=== PATIENT | male | born 1975 | race Caucasian/White ===

== ENCOUNTER 2017-01-17 13:31 | Emergency (ER) | payer BC ==
[2017-01-17] MEDS ORDERED: KEPPRA 1,000 MG/NS 0.75% 100ML 1,000 MG/100 ML BAG IV ONE (13:42)
[2017-01-17] MEDS ORDERED: KEPPRA 1,000 MG in NACL 0.9% 100 ML IV SCH (14:00)
--- NOTE | 2017-01-17 14:36 | Emergency Department Report ---
ED Seizure HPI - General Chief Complaint: Seizure Stated Complaint: SEIZURES Time Seen by Provider: 01/17/17 13:53 Source: patient, EMS, RN notes reviewed Mode of arrival: Stretcher Limitations: No Limitations - History of Present Illness Initial Comments: 41-year-old male presents to the emergency department via EMS for evaluation of seizure. Patient states he had a single seizure this morning that was witnessed by people at his [facility]. Patient reports a history of seizures and states he usually takes Keppra. He states he did not take his dose this morning. His last seizure was approximately 6 weeks ago. At this time, the patient denies complaints. There are no other complaints. MD Complaint: seizure -: Sudden, This morning Description of Episode: loss of consciousness, tonic-clonic movement Witnessed:: Yes Trauma: No Seizure History: known seizure disorder, history of non-compliance Place: other ([facility]) Possible Precipitating Event: none Associated Symptoms: denies other symptoms Treatments Prior to Arrival: none - Related Data Allergies Allergy/AdvReac Type Severity Reaction Status Date / Time No Known Allergies Allergy Unverified 01/17/17 13:34 ED Review of Systems ROS: Stated complaint: SEIZURES Other details as noted in HPI Comment: All other systems reviewed and negative Neurological: as per HPI (seizure) ED Past Medical Hx - Past Medical History Previous Medical History?: Yes Hx Seizures: Yes - Surgical History Past Surgical History?: No - Family History Family history: no significant - Social History Smoking Status: Never Smoker Substance Use Type: None ED Physical Exam - General Limitations: No Limitations General appearance: alert, in no apparent distress - Head Head exam: Present: atraumatic, normocephalic - Eye Eye exam: Present: normal appearance, PERRL, EOMI - ENT ENT exam: Present: normal exam, normal orophraynx, mucous membranes moist - Neck Neck exam: Present: normal inspection, full ROM. Absent: tenderness - Respiratory Respiratory exam: Present: normal lung sounds bilaterally. Absent: respiratory distress - Cardiovascular Cardiovascular Exam: Present: regular rate, normal rhythm, normal heart sounds - GI/Abdominal GI/Abdominal exam: Present: soft, normal bowel sounds. Absent: distended, tenderness - Extremities Exam Extremities exam: Present: normal inspection, full ROM. Absent: tenderness - Back Exam Back exam: Present: normal inspection, full ROM. Absent: tenderness - Neurological Exam Neurological exam: Present: alert, oriented X3. Absent: motor sensory deficit - Skin Skin exam: Present: warm, dry, intact ED Course Vital Signs 01/17/17 01/17/17 13:56 13:57 Temperature 98.6 F Pulse Rate 80 Respiratory 15 15 Rate Blood Pressure 133/93 [Left] O2 Sat by Pulse 100 100 Oximetry ED Medical Decision Making - Lab Data Result diagrams: 01/17/17 14:27 01/17/17 14:27 - Medical Decision Making Lab results reviewed and discussed with the patient. Patient has remained asymptomatic in the emergency department. Patient states he has plenty of his Keppra at home. Patient will be discharged home at this time. - Differential Diagnosis seizure disorder, medication noncompliance, electrolyte abnormality Critical care attestation.: If time is entered above; I have spent that time in minutes in the direct care of this critically ill patient, excluding procedure time. ED Disposition Clinical Impression: Seizure Disposition: DISCHARGED TO HOME OR SELFCARE Is pt being admited?: No Condition: Stable Instructions: Recurrent Seizures Adult (ED) Referrals: ALLEGRA FELDMAN MD [Staff Physician] - 3-5 Days Time of Disposition: 15:32
[2017-01-17 14:45] LABS: Basophils % (Auto) 0.1 % (0.0-1.8); Eosinophils % (Auto) 1.7 % (0.0-4.3); Hemoglobin 10.6 gm/dl (11.8-15.2); Mean Corpuscular HGB Conc 33 % (32-34); Mean Corpuscular Hemoglobin 29 pg (28-32); Mean Corpuscular Volume 88 fl (84-94); Platelet Count 175 K/mm3 (140-440); Red Blood Count 3.62 M/mm3 (3.65-5.03); Red Cell Distribution Width 15.2 % (13.2-15.2); White Blood Count 3.4 K/mm3 (4.5-11.0)
[2017-01-17 15:04] LABS: BUN/Creatinine Ratio 8.66; Calcium 8.7 mg/dL (8.4-10.2); Chloride 100.3 mmol/L (98-107); Potassium 3.9 mmol/L (3.6-5.0)
[2017-01-17 16:46] VITALS: BP 125/86
== END 2017-01-17 16:42 | disposition home or self-care (01) ==
LOC: ED 13:31
DX: R56.9 Unspecified convulsions (principal)
CPT/HCPCS: 36415; 80048; 85025; 96374; 99284; J1953

== ENCOUNTER 2017-11-13 04:11 | Emergency (ER) | payer BC ==
--- NOTE | 2017-11-13 05:40 | Cat Scan Report ---
FINAL REPORT EXAM: CT HEAD/BRAIN W/O CONTRAST HISTORY: Headache. TECHNIQUE: Unenhanced axial CT images of the brain were obtained. No prior studies are available for comparison. FINDINGS: The cortical sulci and ventricles are within normal limits for patient's age. The pettit-white differentiation is maintained. There is no extra-axial fluid collection, mass, mass effect, midline shift, hydrocephalus, or acute intracranial hemorrhage. The visualized paranasal sinuses and mastoid air cells are clear. There is no skull fracture or other osseous abnormality. The visualized orbits and globes are grossly unremarkable. IMPRESSION: No acute intracranial abnormality.
--- NOTE | 2017-11-13 07:16 | Emergency Department Report ---
ED Headache HPI - General Chief Complaint: Headache Stated Complaint: HEADACHE Time Seen by Provider: 11/13/17 07:08 Source: patient - History of Present Illness Initial Comments: 42-year-old male presents with complaint of one week of left-sided headache. Denies any head trauma denies fevers chills nausea vomiting photophobia and a phobia neck rigidity. States that he might have had slight sided earache. States that this has been intermittent waxing and waning over the last several days. Has not taken any home remedies for headache. Denies any upper or lower extremity paresthesias blurry vision or any other symptoms other than left- sided headache. Patient is awake alert and oriented 3 fully lucid and ambulatory. Denies any alcohol or drug use. Timing/Duration: 1 week Allergies/Adverse Reactions: Allergies No Known Allergies Allergy (Unverified 01/17/17 13:34) Home Medications: Ambulatory Orders Ibuprofen [Motrin] 800 mg PO Q8HR PRN #25 tablet 11/13/17 Metoclopramide HCl [Reglan TAB] 5 mg PO TIDAC PRN #9 tablet 11/13/17 ED Review of Systems ROS: Stated complaint: HEADACHE Other details as noted in HPI Constitutional: denies: chills, fever Eyes: denies: eye pain, eye discharge, vision change ENT: denies: ear pain, throat pain Respiratory: denies: cough, shortness of breath, wheezing Cardiovascular: denies: chest pain, palpitations Endocrine: no symptoms reported Gastrointestinal: denies: abdominal pain, nausea, diarrhea Genitourinary: denies: urgency, dysuria Musculoskeletal: denies: back pain, joint swelling, arthralgia Skin: denies: rash, lesions Neurological: headache. denies: weakness, paresthesias Psychiatric: denies: anxiety, depression Hematological/Lymphatic: denies: easy bleeding, easy bruising ED Past Medical Hx - Past Medical History Previous Medical History?: Yes Hx Seizures: Yes - Surgical History Past Surgical History?: No - Social History Smoking Status: Never Smoker Substance Use Type: None - Medications Home Medications: Home Medications Medication Instructions Recorded Confirmed Last Taken Type Ibuprofen [Motrin] 800 mg PO Q8HR PRN #25 tablet 11/13/17 Unknown Rx Metoclopramide HCl [Reglan TAB] 5 mg PO TIDAC PRN #9 tablet 11/13/17 Unknown Rx ED Physical Exam - General Limitations: No Limitations General appearance: alert, in no apparent distress - Head Head exam: Present: atraumatic, normocephalic - Eye Eye exam: Present: normal appearance, PERRL, EOMI - ENT ENT exam: Present: mucous membranes moist - Expanded ENT Exam Expanded Mouth exam: Present: normal external inspection Teeth exam: Present: normal inspection Throat exam: Positive: normal inspection - Neck Neck exam: Present: normal inspection, full ROM - Respiratory Respiratory exam: Present: normal lung sounds bilaterally. Absent: respiratory distress - Cardiovascular Cardiovascular Exam: Present: regular rate, normal rhythm. Absent: systolic murmur, diastolic murmur, rubs, gallop - GI/Abdominal GI/Abdominal exam: Present: soft, normal bowel sounds - Rectal Rectal exam: Present: deferred - Extremities Exam Extremities exam: Present: normal inspection - Back Exam Back exam: Present: normal inspection - Neurological Exam Neurological exam: Present: alert, oriented X3, CN II-XII intact, normal gait - Expanded Neurological Exam Expanded Patient oriented to: Present: person, place, time Cranial nerves: EOM's Intact: Normal, Facial Sensation: Normal Cerebellar function: Finger to Nose: Normal, Romberg: Normal Sensory exam: Upper Extremity Light Touch: Normal, Lower Extremity Light Touch: Normal Motor strength exam: RUE: 5, LUE: 5, RLE: 5, LLE: 5 Best Eye Response (Buxton): (4) open spontaneously Best Motor Response ([place]): (6) obeys commands Best Verbal Response (Yajaira): (5) oriented [place] Total: 15 - Psychiatric Psychiatric exam: Present: normal affect, normal mood - Skin Skin exam: Present: warm, dry, intact, normal color. Absent: rash ED Course Vital Signs 11/13/17 11/13/17 11/13/17 04:21 08:10 08:38 Temperature 98.1 F 98.3 F Pulse Rate 80 66 Respiratory 20 14 14 Rate Blood Pressure 146/100 Blood Pressure 133/90 [Left] O2 Sat by Pulse 99 100 Oximetry ED Medical Decision Making - Medical Decision Making A/P: Migraine headache 1-Motrin when necessary, short course Reglan when necessary 2-follow-up with primary care doctor 3- Cranial nerves 2, 3, 4, 5, 6, 7, 8,10, 11, 12 intact on clinical exam, patient is fully lucid awake alert and oriented 3 conversant. Denies any upper or lower extremity paresthesias and has 5/5 strength in bilateral upper and lower extremities on clinical exam. 4- follow-up with primary medical doctor this week Critical care attestation.: If time is entered above; I have spent that time in minutes in the direct care of this critically ill patient, excluding procedure time. ED Disposition Clinical Impression: Tension headache Disposition: DC- TO HOME OR SELFCARE Is pt being admited?: No Does the pt Need Aspirin: No Condition: Stable Instructions: Tension Headache (ED), Acute Headache (ED) Prescriptions: Ibuprofen [Motrin] 800 mg PO Q8HR PRN #25 tablet PRN Reason: Headache Metoclopramide HCl [Reglan TAB] 5 mg PO TIDAC PRN #9 tablet PRN Reason: Headache Referrals: TIAN RENEE [Other] - 3-5 Days [facility] [Outside] - 3-5 Days Forms: Work/School Release Form(ED) Time of Disposition: 08:59
[2017-11-13] MEDS ORDERED: MOTRIN PO ONE (07:36)
[2017-11-13] MEDS ORDERED: BENADRYL IV ONE (07:36)
[2017-11-13] MEDS ORDERED: REGLAN IV ONE (07:36)
[2017-11-13] MEDS ORDERED: REGLAN ONE (07:37)
[2017-11-13] MEDS ORDERED: BENADRYL ONE (07:37)
[2017-11-13] MEDS ORDERED: MOTRIN ONE (07:37)
[2017-11-13 08:12] VITALS: BP 133/90
== END 2017-11-13 09:17 | disposition home or self-care (01) ==
LOC: ED 04:11
DX: G44.209 Tension-type headache, unspecified, not intractable (principal)
CPT/HCPCS: 70450; 82962; 96374; 96375; 99284; J1200; J2765

== ENCOUNTER 2018-02-19 23:45 | Inpatient (IN) | payer SELFPAY ==
[2018-02-19] MEDS ORDERED: NACL 0.9% 1000 ML 1,000 ML IV ONE (23:53)
[2018-02-19] MEDS: ATIVAN IV PRN (23:55)
[2018-02-20 00:37] LABS: Hematocrit 29.5 % (35.5-45.6); Hemoglobin 9.9 gm/dl (11.8-15.2); Mean Corpuscular HGB Conc 34 % (32-34); Mean Corpuscular Hemoglobin 30 pg (28-32); Mean Corpuscular Volume 89 fl (84-94); Platelet Count 158 K/mm3 (140-440); Red Blood Count 3.31 M/mm3 (3.65-5.03); Red Cell Distribution Width 13.6 % (13.2-15.2)
[2018-02-20 00:56] LABS: Albumin 3.5 g/dL (3.9-5); Calcium 8.3 mg/dL (8.4-10.2)
--- NOTE | 2018-02-20 01:08 | Cat Scan Report ---
FINAL REPORT PROCEDURE: CT HEAD/BRAIN WO CON TECHNIQUE: Computerized tomography of the head was performed without contrast material. HISTORY: Seizure COMPARISON: 11/13/2017 FINDINGS: Skull and scalp: Normal. Paranasal sinuses: Normal. Ventricles and subarachnoid spaces: Normal. Cerebrum: No evidence of hemorrhage, acute infarction or mass . Cerebellum and brainstem: No evidence of hemorrhage, acute infarction or mass. Vasculature: Normal. Comments: None. IMPRESSION: There is no evidence of an acute intracranial process.
[2018-02-20] MEDS: ATIVAN IV PRN ×6 (03:00→20:44)
[2018-02-20] MEDS ORDERED: NACL 0.9% 1000 ML 1,000 ML ONE (03:17)
[2018-02-20 03:37] LABS: Bilirubin,Urine NEG (Negative); Blood,Urine LG (Negative); Color,Urine Yellow (Yellow); Mucus,Urine FEW /HPF; Protein,Urine <15 mg/dL mg/dL (Negative)
[2018-02-20 03:38] LABS: RBC,Urine > 182.0 /HPF (0.0-6.0)
[2018-02-20 03:44] LABS: Amphetamine Screen,Urine PRESUMPTIVE NEGATIVE; Benzodiazepines Screen,Urine PRESUMPTIVE NEGATIVE; Cannabinoid Screen,Urine PRESUMPTIVE NEGATIVE; Cocaine Screen,Urine PRESUMPTIVE NEGATIVE; Methadone Screen,Urine PRESUMPTIVE NEGATIVE; Opiate Screen,Urine PRESUMPTIVE NEGATIVE
--- NOTE | 2018-02-20 04:51 | Emergency Department Report ---
ED Seizure HPI - General Chief Complaint: Seizure Stated Complaint: SEIZURES Time Seen by Provider: 02/19/18 23:53 Source: family, EMS Mode of arrival: Stretcher Limitations: No Limitations - History of Present Illness Initial Comments: Patient brought emergency department by friends with report of having had seizure shortly prior to arrival. 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 There was unclear whether patient had any postictal episodes, the patient was not incontinent, and had not bitten his tongue. Friends report the patient has a past history of seizures, which are treated with lorazepam, and gabapentin or Lyrica. It is unclear where he had his diagnosis of seizures, and whether he was under the care of a neurologist. Last seizure was several months earlier. Patient has not suffered any trauma, had not been ill, and had not had any other unusual activity, and had not been particularly stressed as result of his theatrical activities. General health is otherwise good. There's been no recreational drug use history. - Related Data Previous Rx's Medication Instructions Recorded Last Taken Type Ibuprofen [Motrin] 800 mg PO Q8HR PRN #25 tablet 11/13/17 Unknown Rx Metoclopramide HCl [Reglan TAB] 5 mg PO TIDAC PRN #9 tablet 11/13/17 Unknown Rx Allergies Allergy/AdvReac Type Severity Reaction Status Date / Time No Known Allergies Allergy Unverified 01/17/17 13:34 ED Review of Systems ROS: Stated complaint: SEIZURES Other details as noted in HPI Constitutional: denies: chills, fever ENT: denies: ear pain, throat pain Respiratory: denies: cough, shortness of breath, wheezing Cardiovascular: denies: chest pain, palpitations Endocrine: no symptoms reported Gastrointestinal: denies: abdominal pain, nausea, diarrhea Genitourinary: denies: urgency, dysuria Musculoskeletal: denies: back pain, joint swelling, arthralgia Skin: denies: rash, lesions Neurological: as per HPI (no preceding symptoms). denies: headache, weakness, paresthesias Psychiatric: denies: anxiety, depression Hematological/Lymphatic: denies: easy bleeding, easy bruising ED Past Medical Hx - Past Medical History Previous Medical History?: Yes Hx Seizures: Yes (Epilepsy, treated with lorazepam,) - Social History Smoking Status: Never Smoker Substance Use Type: None - Medications Home Medications: Home Medications Medication Instructions Recorded Confirmed Last Taken Type Ibuprofen [Motrin] 800 mg PO Q8HR PRN #25 tablet 11/13/17 Unknown Rx Metoclopramide HCl [Reglan TAB] 5 mg PO TIDAC PRN #9 tablet 11/13/17 Unknown Rx ED Physical Exam - General Limitations: No Limitations General appearance: obtunded (patient is awake, and physically responsive to request in between seizure activity, but minimally vocal, no clear-cut postictal activity.) - Head Head exam: Present: atraumatic, normocephalic - Eye Eye exam: Present: PERRL - ENT ENT exam: Present: normal exam, mucous membranes moist - Neck Neck exam: Present: normal inspection, full ROM. Absent: tenderness - Respiratory Respiratory exam: Present: normal lung sounds bilaterally. Absent: wheezes, rales, rhonchi - Cardiovascular Cardiovascular Exam: Present: regular rate, normal heart sounds - GI/Abdominal GI/Abdominal exam: Present: soft, normal bowel sounds. Absent: tenderness, guarding, rebound - Rectal Rectal exam: Present: deferred - Extremities Exam Extremities exam: Present: normal inspection, full ROM, other (no signs of trauma, abrasion or laceration). Absent: tenderness - Neurological Exam Neurological exam: Present: altered (questionable unresponsive, limited evidence of typical postictal activity, does exhibit spontaneous movement of all extremities.). Absent: motor sensory deficit - Psychiatric Psychiatric exam: Present: other (unable to assess due to overall obtunded appearance) - Skin Skin exam: Present: warm, dry ED Course Vital Signs 02/19/18 02/19/18 02/19/18 23:22 23:30 23:45 Temperature 36.7 C Pulse Rate 89 120 H Respiratory 23 34 H Rate Blood Pressure 163/91 163/91 O2 Sat by Pulse 100 100 100 Oximetry 02/19/18 02/20/18 02/20/18 23:46 00:00 00:06 Temperature Pulse Rate 86 84 86 Respiratory 17 18 15 Rate Blood Pressure 141/96 163/91 O2 Sat by Pulse 100 100 100 Oximetry 02/20/18 02/20/18 02/20/18 00:08 00:30 01:14 Temperature Pulse Rate 85 74 Respiratory 18 13 13 Rate Blood Pressure 134/96 134/96 O2 Sat by Pulse 100 99 Oximetry 02/20/18 02/20/18 02/20/18 01:30 02:00 02:30 Temperature Pulse Rate 75 74 87 Respiratory 13 13 14 Rate Blood Pressure 129/90 131/89 131/89 O2 Sat by Pulse 100 98 100 Oximetry 02/20/18 03:00 Temperature Pulse Rate 66 Respiratory 13 Rate Blood Pressure 142/99 O2 Sat by Pulse 100 Oximetry - Reevaluation(s) Reevaluation #1: 02/20/18 04:52 Patient treated initially with lorazepam, had several additional episodes of the course of his emergency department observation and evaluation, H also treated with additional doses of lorazepam, and patient ultimately is sedated, sleeping fairly comfortably, but there was one additional seizure episode at 0430 hrs., typical of the previous episodes, without clearcut postictal activity. - Consultations Consultation #1: 02/20/18 04:53 Dr. Doran consulted, will admit patient ED Medical Decision Making - Lab Data Result diagrams: 02/20/18 00:16 02/20/18 00:16 - Medical Decision Making Patient has a typical seizure activity, and on my observation, does not appear to be clear-cut grand mal seizure, but could be atypical seizures, either absence or Complex Partial, but I Would Also Hold High Suspicion for Pseudoseizure Activity As Well. - Differential Diagnosis seizure, pseudoseizure, exhaustion, stress reaction Critical Care Time: No Critical care attestation.: If time is entered above; I have spent that time in minutes in the direct care of this critically ill patient, excluding procedure time. ED Disposition Clinical Impression: Seizure Disposition: OP ADMIT IP TO THIS HOSP Is pt being admited?: Yes Does the pt Need Aspirin: No Condition: Stable Referrals: PRIMARY CARE, [Primary Care Provider] - 3-5 Days Time of Disposition: 03:30
[2018-02-20] MEDS ORDERED: TYLENOL PO PRN ×2 (04:55→05:43)
[2018-02-20] MEDS ORDERED: SODIUM CHLORIDE FLUSH SYRINGE 10 ML IV PRN ×2 (04:55→05:43)
[2018-02-20] MEDS ORDERED: ZOFRAN IV PRN ×2 (04:55→05:43)
[2018-02-20 04:56] LABS: Band Neutrophils # (Manual) 0.1 K/mm3; Basophils % (Manual) 0 % (0.0-1.8); Eosinophils % (Manual) 0 % (0.0-4.3); Total Cells Counted 100
[2018-02-20 04:57] LABS: Anisocytosis 1+; Hypochromasia 1+
[2018-02-20] MEDS ORDERED: KEPPRA 1,000 MG/NS 0.75% 100ML 1,000 MG/100 ML BAG IV ONE (04:57)
--- NOTE | 2018-02-20 05:36 | History and Physical Report ---
History of Present Illness Date of examination: 02/20/18 Date of admission: 02/20/2018 Chief complaint: Chief complaint: Multiple seizures since 6 PM yesterday History of present illness: History of present illness: [id number] -[place] male with history of seizures on Lyrica and Ativan presents with multiple seizures since 6 PM off 02/19/2018. Patient was seen around 4 AM in the morning. As per the friends at bedside and his boyfriend patient and multiple seizures since 6 PM. A total of 14 times. As per the nurse in the emergency room couple of them were tonic-clonic and the patient had to be held down. Total of 5 in the emergency room which were witnessed. The other 3 seizures patient had twitching in the arm followed by twitching of the eyes. They were very brief. Patient did not have any tongue biting any of these seizures. No fever no chills. No headache. No nausea no vomiting. No neck stiffness. No exacerbating or relieving factors. Past History Past Medical History: seizures Past Surgical History: No surgical history Social history: full code (homosexuality), other Family history: hypertension Medications and Allergies Allergies Allergy/AdvReac Type Severity Reaction Status Date / Time No Known Allergies Allergy Unverified 01/17/17 13:34 Home Medications Medication Instructions Recorded Confirmed Last Taken Type Ibuprofen [Motrin] 800 mg PO Q8HR PRN #25 tablet 11/13/17 Unknown Rx Metoclopramide HCl [Reglan TAB] 5 mg PO TIDAC PRN #9 tablet 11/13/17 Unknown Rx Active Meds: Active Medications Acetaminophen (Tylenol) 650 mg PO Q4H PRN PRN Reason: Pain MILD(1-3)/Fever >100.5/RANDHAWA Lorazepam (Ativan) 2 mg IV Q5M PRN PRN Reason: Seizures Last Admin: 02/20/18 04:19 Dose: 2 mg Ondansetron HCl (Zofran) 4 mg IV Q8H PRN PRN Reason: Nausea And Vomiting Sodium Chloride (Sodium Chloride Flush Syringe 10 Ml) 10 ml IV BID SAVITA Sodium Chloride (Sodium Chloride Flush Syringe 10 Ml) 10 ml IV PRN PRN PRN Reason: LINE FLUSH Review of Systems All systems: negative Cardiovascular: no chest pain, no orthopnea, no palpitations, no rapid/ irregular heart beat, no edema, no syncope Respiratory: no cough, no cough with sputum, no excessive sputum, no shortness of breath, no dyspnea on exertion, no congestion Gastrointestinal: no abdominal pain, no nausea, no vomiting, no diarrhea, no constipation Genitourinary Male: no dysuria, no hematuria, no urinary frequency, no urinary hesitancy, no nocturia Musculoskeletal: no neck stiffness, no neck pain, no shooting arm pain, no arm numbness/tingling, no low back pain Integumentary: no rash, no pruritis, no redness, no sores, no wounds, no jaundice Neurological: seizures Psychiatric: anxiety, no memory loss, no change in sleep habits, no sleep disturbances, no insomnia Endocrine: no cold intolerance, no heat intolerance Hematologic/Lymphatic: no easy bruising, no easy bleeding Allergic/Immunologic: no urticaria, no allergic rhinitis, no wheezing Exam - Constitutional Vitals: Temp Pulse Resp BP Pulse Ox 98.1 F 69 12 151/97 99 02/19/18 23:45 02/20/18 04:30 02/20/18 04:30 02/20/18 04:30 02/20/18 04:30 General appearance: Present: no acute distress, well-nourished - EENT Eyes: Present: PERRL ENT: hearing intact, clear oral mucosa - Neck Neck: Present: supple, normal ROM - Respiratory Respiratory effort: normal Respiratory: bilateral: CTA - Cardiovascular Heart rate: 78 Rhythm: regular Heart Sounds: Present: S1 & S2. Absent: rub, click - Extremities Extremities: no ischemia, pulses intact, pulses symmetrical, No edema Peripheral Pulses: within normal limits - Abdominal General gastrointestinal: Present: soft, non-tender, non-distended, normal bowel sounds Male genitourinary: Present: normal - Rectal Rectal Exam: deferred - Integumentary Integumentary: Present: clear, warm, dry - Musculoskeletal Musculoskeletal: gait normal, strength equal bilaterally - Psychiatric Psychiatric: appropriate mood/affect, intact judgment & insight - Neurologic Neurologic: CNII-XII intact, moves all extremities, gait normal, other ( nonfocal exam and patient is not postictal) Results - Labs CBC & Chem 7: 02/20/18 00:16 02/20/18 00:16 Labs: Laboratory Last Values WBC 2.3 K/mm3 (4.5-11.0) L 02/20/18 00:16 RBC 3.31 M/mm3 (3.65-5.03) L 02/20/18 00:16 Hgb 9.9 gm/dl (11.8-15.2) L 02/20/18 00:16 Hct 29.5 % (35.5-45.6) L 02/20/18 00:16 MCV 89 fl (84-94) 02/20/18 00:16 MCH 30 pg (28-32) 02/20/18 00:16 MCHC 34 % (32-34) 02/20/18 00:16 RDW 13.6 % (13.2-15.2) 02/20/18 00:16 Plt Count 158 K/mm3 (140-440) 02/20/18 00:16 Add Manual Diff Complete 02/20/18 00:16 Total Counted 100 02/20/18 00:16 Seg Neuts % (Manual) 66.0 % (40.0-70.0) 02/20/18 00:16 Band Neutrophils % 5.0 % 02/20/18 00:16 Lymphocytes % (Manual) 20.0 % (13.4-35.0) 02/20/18 00:16 Reactive Lymphs % (Man) 0 % 02/20/18 00:16 Monocytes % (Manual) 9.0 % (0.0-7.3) H 02/20/18 00:16 Eosinophils % (Manual) 0 % (0.0-4.3) 02/20/18 00:16 Basophils % (Manual) 0 % (0.0-1.8) 02/20/18 00:16 Metamyelocytes % 0 % 02/20/18 00:16 Myelocytes % 0 % 02/20/18 00:16 Promyelocytes % 0 % 02/20/18 00:16 Blast Cells % 0 % 02/20/18 00:16 Nucleated RBC % Not Reportable 02/20/18 00:16 Seg Neutrophils # Man 1.5 K/mm3 (1.8-7.7) L 02/20/18 00:16 Band Neutrophils # 0.1 K/mm3 02/20/18 00:16 Lymphocytes # (Manual) 0.5 K/mm3 (1.2-5.4) L 02/20/18 00:16 Abs React Lymphs (Man) 0.0 K/mm3 02/20/18 00:16 Monocytes # (Manual) 0.2 K/mm3 (0.0-0.8) 02/20/18 00:16 Eosinophils # (Manual) 0.0 K/mm3 (0.0-0.4) 02/20/18 00:16 Basophils # (Manual) 0.0 K/mm3 (0.0-0.1) 02/20/18 00:16 Metamyelocytes # 0.0 K/mm3 02/20/18 00:16 Myelocytes # 0.0 K/mm3 02/20/18 00:16 Promyelocytes # 0.0 K/mm3 02/20/18 00:16 Blast Cells # 0.0 K/mm3 02/20/18 00:16 WBC Morphology Not Reportable 02/20/18 00:16 Hypersegmented Neuts Not Reportable 02/20/18 00:16 Hyposegmented Neuts Not Reportable 02/20/18 00:16 Hypogranular Neuts Not Reportable 02/20/18 00:16 Smudge Cells Not Reportable 02/20/18 00:16 Toxic Granulation Not Reportable 02/20/18 00:16 Toxic Vacuolation Not Reportable 02/20/18 00:16 Dohle Bodies Not Reportable 02/20/18 00:16 Pelger-Huet Anomaly Not Reportable 02/20/18 00:16 Mal Rods Not Reportable 02/20/18 00:16 Platelet Estimate Appears normal 02/20/18 00:16 Clumped Platelets Not Reportable 02/20/18 00:16 Plt Clumps, EDTA Not Reportable 02/20/18 00:16 Large Platelets Not Reportable 02/20/18 00:16 Giant Platelets Not Reportable 02/20/18 00:16 Platelet Satelliting Not Reportable 02/20/18 00:16 Plt Morphology Comment Not Reportable 02/20/18 00:16 RBC Morphology Not Reportable 02/20/18 00:16 Dimorphic RBCs Not Reportable 02/20/18 00:16 Polychromasia Not Reportable 02/20/18 00:16 Hypochromasia 1+ 02/20/18 00:16 Poikilocytosis Not Reportable 02/20/18 00:16 Anisocytosis 1+ 02/20/18 00:16 Microcytosis Not Reportable 02/20/18 00:16 Macrocytosis Not Reportable 02/20/18 00:16 Spherocytes Not Reportable 02/20/18 00:16 Pappenheimer Bodies Not Reportable 02/20/18 00:16 Sickle Cells Not Reportable 02/20/18 00:16 Target Cells Not Reportable 02/20/18 00:16 Tear Drop Cells Not Reportable 02/20/18 00:16 Ovalocytes Not Reportable 02/20/18 00:16 Helmet Cells Not Reportable 02/20/18 00:16 [place] Bodies Not Reportable 02/20/18 00:16 [place] Rings Not Reportable 02/20/18 00:16 [place] Cells Not Reportable 02/20/18 00:16 Bite Cells Not Reportable 02/20/18 00:16 Crenated Cell Not Reportable 02/20/18 00:16 Elliptocytes Not Reportable 02/20/18 00:16 Acanthocytes (Spur) Not Reportable 02/20/18 00:16 Rouleaux Not Reportable 02/20/18 00:16 Hemoglobin C Crystals Not Reportable 02/20/18 00:16 Schistocytes Not Reportable 02/20/18 00:16 Malaria parasites Not Reportable 02/20/18 00:16 Romeo Bodies Not Reportable 02/20/18 00:16 Hem Pathologist Commnt No 02/20/18 00:16 Sodium 141 mmol/L (137-145) 02/20/18 00:16 Potassium 3.7 mmol/L (3.6-5.0) 02/20/18 00:16 Chloride 104.4 mmol/L (98-107) 02/20/18 00:16 Carbon Dioxide 26 mmol/L (22-30) 02/20/18 00:16 Anion Gap 14 mmol/L 02/20/18 00:16 BUN 14 mg/dL (9-20) 02/20/18 00:16 Creatinine 1.4 mg/dL (0.8-1.5) 02/20/18 00:16 Estimated GFR 56 ml/min 02/20/18 00:16 BUN/Creatinine Ratio 10 % 02/20/18 00:16 Glucose 101 mg/dL (75-100) H 02/20/18 00:16 Calcium 8.3 mg/dL (8.4-10.2) L 02/20/18 00:16 Total Bilirubin 0.30 mg/dL (0.1-1.2) 02/20/18 00:16 AST 25 units/L (5-40) 02/20/18 00:16 ALT 12 units/L (7-56) 02/20/18 00:16 Alkaline Phosphatase 48 units/L (35-129) 02/20/18 00:16 Total Protein 7.1 g/dL (6.3-8.2) 02/20/18 00:16 Albumin 3.5 g/dL (3.9-5) L 02/20/18 00:16 Albumin/Globulin Ratio 1.0 % 02/20/18 00:16 Urine Color Yellow (Yellow) 02/20/18 03:06 Urine Turbidity Hazy (Clear) 02/20/18 03:06 Urine pH 6.0 (5.0-7.0) 02/20/18 03:06 Ur Specific [place] 1.013 (1.003-1.030) 02/20/18 03:06 Urine Protein <15 mg/dl mg/dL (Negative) 02/20/18 03:06 Urine Glucose (UA) Neg mg/dL (Negative) 02/20/18 03:06 Urine Ketones Neg mg/dL (Negative) 02/20/18 03:06 Urine Blood Lg (Negative) 02/20/18 03:06 Urine Nitrite Neg (Negative) 02/20/18 03:06 Urine Bilirubin Neg (Negative) 02/20/18 03:06 Urine Urobilinogen 2.0 mg/dL (<2.0) 02/20/18 03:06 Ur Leukocyte Esterase Neg (Negative) 02/20/18 03:06 Urine WBC (Auto) 4.0 /HPF (0.0-6.0) 02/20/18 03:06 Urine RBC (Auto) > 182.0 /HPF (0.0-6.0) 02/20/18 03:06 U Epithel Cells (Auto) < 1.0 /HPF (0-13.0) 02/20/18 03:06 Urine Mucus Few /HPF 02/20/18 03:06 Salicylates < 0.3 mg/dL (2.8-20.0) L 02/20/18 00:16 Urine Opiates Screen Presumptive negative 02/20/18 03:06 Urine Methadone Screen Presumptive negative 02/20/18 03:06 Acetaminophen < 5.0 ug/mL (10.0-30.0) L 02/20/18 00:16 Ur Barbiturates Screen Presumptive negative 02/20/18 03:06 Phenytoin 0.8 ug/mL (10.0-20.0) L 02/20/18 00:16 Valproic Acid < 2.8 ug/mL (50-100) L 02/20/18 00:16 Carbamazepine 2.0 ug/mL (4-12) L 02/20/18 00:16 Ur Phencyclidine Scrn Presumptive negative 02/20/18 03:06 Ur Amphetamines Screen Presumptive negative 02/20/18 03:06 U Benzodiazepines Scrn Presumptive negative 02/20/18 03:06 Urine Cocaine Screen Presumptive negative 02/20/18 03:06 U Marijuana (THC) Screen Presumptive negative 02/20/18 03:06 Drugs of Abuse Note Disclamer 02/20/18 03:06 Plasma/Serum Alcohol < 0.01 % (0-0.07) 02/20/18 00:16 - Imaging and Cardiology CT Scan - head: report reviewed (no acute findings) Assessment and Plan Advance Directives: Yes (full code) VTE prophylaxis?: Chemical Plan of care discussed with patient/family: Yes - Patient Problems (1) Seizure disorder, complex partial Current Visit: Yes Status: Acute Qualifiers: Epilepsy type: partial symptomatic Status epilepticus: without status epilepticus Plan to address problem: Patient on Lyrica and Ativan We will replace it with IV Keppra and discontinue Lyrica. Patient to be discharged on oral Keppra. 750 mg every 12. Neurology consulted (2) Conversion disorder with attacks or seizures, acute episode Current Visit: Yes Status: Acute Plan to address problem: Possible conversion disorder mental health consulted. (3) Neutropenia Current Visit: Yes Status: Acute Plan to address problem: HIV test ordered because of his sexual preference (4) Hypocalcemia Current Visit: Yes Status: Chronic Plan to address problem: Mild Caltrate initiated (5) DVT prophylaxis Current Visit: Yes Status: Acute Plan to address problem: Lovenox 40 mg subcutaneous daily
[2018-02-20] MEDS ORDERED: MOTRIN PO PRN (05:43)
[2018-02-20] MEDS ORDERED: MORPHINE IV PRN (05:43)
[2018-02-20] MEDS: D5NS 1,000 ML IV SCH ×2 (06:35→23:26)
[2018-02-20] MEDS ORDERED: KEPPRA 750 MG in D5W 100 ML IV SCH (10:00)
[2018-02-20] MEDS: SODIUM CHLORIDE FLUSH SYRINGE 10 ML IV SCH ×2 (11:09)
[2018-02-20] MEDS: CALTRATE PLUS PO SCH ×2 (11:10→23:26)
--- NOTE | 2018-02-20 13:47 | Progress Note ---
Assessment and Plan - Patient Problems (1) Anemia Current Visit: Yes Status: Acute Plan to address problem: At this point patient has a reactive tests for HIV. Most likely etiology. We' ll obtain viral load ID consult. (2) Conversion disorder with attacks or seizures, acute episode Current Visit: Yes Status: Acute Plan to address problem: At present from the description appears to be an actual seizure. They did have witnessed seizure by staff and ER. Patient continues to have another seizure will increase Keppra to 1000 twice a day await any further recommendations via neurology. He is oxygenating well. Did come around appears and had another seizure currently on Ativan. (3) Neutropenia Current Visit: Yes Status: Acute Plan to address problem: Most likely secondary to patient's HIV status. (4) Seizure disorder, complex partial Current Visit: Yes Status: Acute Qualifiers: Epilepsy type: partial symptomatic Status epilepticus: without status epilepticus Plan to address problem: see seizure as previously described. Above (5) HIV (human immunodeficiency virus infection) Current Visit: Yes Status: Acute Plan to address problem: She had a reaction positive test. Unable to detail patient about results secondary to his postictal status. History Interval history: Patient is sleeping in bed comfortably this particular time friends at bedside stated patient had additional seizure approximately 1 hour prior to my entrance. Patient also received Ativan. Most likely postictal and Ativan. I did not discuss findings of reactive HIV with anyone. Patient was sleeping and could not take part in the conversation. Hospitalist Physical - Constitutional Vitals: Temp Pulse Resp BP Pulse Ox 97.4 F L 64 18 143/93 100 02/20/18 07:38 02/20/18 11:15 02/20/18 11:15 02/20/18 11:15 02/20/18 11:15 General appearance: Present: no acute distress, well-nourished - EENT Eyes: Present: PERRL, EOM intact - Neck Neck: Present: supple, normal ROM - Respiratory Respiratory: bilateral: CTA - Cardiovascular Rhythm: regular - Extremities Extremities: no ischemia, pulses intact, pulses symmetrical, No edema, normal temperature, normal color Peripheral Pulses: within normal limits - Abdominal General gastrointestinal: soft, non-tender, non-distended - Integumentary Integumentary: Present: clear, warm, dry - Psychiatric Psychiatric: other (encephalopathic post ictal.) - Neurologic Neurologic: CNII-XII intact Results - Labs CBC & Chem 7: 02/20/18 00:16 02/20/18 00:16 Labs: Laboratory Last Values WBC 2.3 K/mm3 (4.5-11.0) L 02/20/18 00:16 RBC 3.31 M/mm3 (3.65-5.03) L 02/20/18 00:16 Hgb 9.9 gm/dl (11.8-15.2) L 02/20/18 00:16 Hct 29.5 % (35.5-45.6) L 02/20/18 00:16 MCV 89 fl (84-94) 02/20/18 00:16 MCH 30 pg (28-32) 02/20/18 00:16 MCHC 34 % (32-34) 02/20/18 00:16 RDW 13.6 % (13.2-15.2) 02/20/18 00:16 Plt Count 158 K/mm3 (140-440) 02/20/18 00:16 Add Manual Diff Complete 02/20/18 00:16 Total Counted 100 02/20/18 00:16 Seg Neuts % (Manual) 66.0 % (40.0-70.0) 02/20/18 00:16 Band Neutrophils % 5.0 % 02/20/18 00:16 Lymphocytes % (Manual) 20.0 % (13.4-35.0) 02/20/18 00:16 Reactive Lymphs % (Man) 0 % 02/20/18 00:16 Monocytes % (Manual) 9.0 % (0.0-7.3) H 02/20/18 00:16 Eosinophils % (Manual) 0 % (0.0-4.3) 02/20/18 00:16 Basophils % (Manual) 0 % (0.0-1.8) 02/20/18 00:16 Metamyelocytes % 0 % 02/20/18 00:16 Myelocytes % 0 % 02/20/18 00:16 Promyelocytes % 0 % 02/20/18 00:16 Blast Cells % 0 % 02/20/18 00:16 Nucleated RBC % Not Reportable 02/20/18 00:16 Seg Neutrophils # Man 1.5 K/mm3 (1.8-7.7) L 02/20/18 00:16 Band Neutrophils # 0.1 K/mm3 02/20/18 00:16 Lymphocytes # (Manual) 0.5 K/mm3 (1.2-5.4) L 02/20/18 00:16 Abs React Lymphs (Man) 0.0 K/mm3 02/20/18 00:16 Monocytes # (Manual) 0.2 K/mm3 (0.0-0.8) 02/20/18 00:16 Eosinophils # (Manual) 0.0 K/mm3 (0.0-0.4) 02/20/18 00:16 Basophils # (Manual) 0.0 K/mm3 (0.0-0.1) 02/20/18 00:16 Metamyelocytes # 0.0 K/mm3 02/20/18 00:16 Myelocytes # 0.0 K/mm3 02/20/18 00:16 Promyelocytes # 0.0 K/mm3 02/20/18 00:16 Blast Cells # 0.0 K/mm3 02/20/18 00:16 WBC Morphology Not Reportable 02/20/18 00:16 Hypersegmented Neuts Not Reportable 02/20/18 00:16 Hyposegmented Neuts Not Reportable 02/20/18 00:16 Hypogranular Neuts Not Reportable 02/20/18 00:16 Smudge Cells Not Reportable 02/20/18 00:16 Toxic Granulation Not Reportable 02/20/18 00:16 Toxic Vacuolation Not Reportable 02/20/18 00:16 Dohle Bodies Not Reportable 02/20/18 00:16 Pelger-Huet Anomaly Not Reportable 02/20/18 00:16 Mal Rods Not Reportable 02/20/18 00:16 Platelet Estimate Appears normal 02/20/18 00:16 Clumped Platelets Not Reportable 02/20/18 00:16 Plt Clumps, EDTA Not Reportable 02/20/18 00:16 Large Platelets Not Reportable 02/20/18 00:16 Giant Platelets Not Reportable 02/20/18 00:16 Platelet Satelliting Not Reportable 02/20/18 00:16 Plt Morphology Comment Not Reportable 02/20/18 00:16 RBC Morphology Not Reportable 02/20/18 00:16 Dimorphic RBCs Not Reportable 02/20/18 00:16 Polychromasia Not Reportable 02/20/18 00:16 Hypochromasia 1+ 02/20/18 00:16 Poikilocytosis Not Reportable 02/20/18 00:16 Anisocytosis 1+ 02/20/18 00:16 Microcytosis Not Reportable 02/20/18 00:16 Macrocytosis Not Reportable 02/20/18 00:16 Spherocytes Not Reportable 02/20/18 00:16 Pappenheimer Bodies Not Reportable 02/20/18 00:16 Sickle Cells Not Reportable 02/20/18 00:16 Target Cells Not Reportable 02/20/18 00:16 Tear Drop Cells Not Reportable 02/20/18 00:16 Ovalocytes Not Reportable 02/20/18 00:16 Helmet Cells Not Reportable 02/20/18 00:16 [place] Bodies Not Reportable 02/20/18 00:16 [place] Rings Not Reportable 02/20/18 00:16 [place] Cells Not Reportable 02/20/18 00:16 Bite Cells Not Reportable 02/20/18 00:16 Crenated Cell Not Reportable 02/20/18 00:16 Elliptocytes Not Reportable 02/20/18 00:16 Acanthocytes (Spur) Not Reportable 02/20/18 00:16 Rouleaux Not Reportable 02/20/18 00:16 Hemoglobin C Crystals Not Reportable 02/20/18 00:16 Schistocytes Not Reportable 02/20/18 00:16 Malaria parasites Not Reportable 02/20/18 00:16 Romeo Bodies Not Reportable 02/20/18 00:16 Hem Pathologist Commnt No 02/20/18 00:16 Sodium 141 mmol/L (137-145) 02/20/18 00:16 Potassium 3.7 mmol/L (3.6-5.0) 02/20/18 00:16 Chloride 104.4 mmol/L (98-107) 02/20/18 00:16 Carbon Dioxide 26 mmol/L (22-30) 02/20/18 00:16 Anion Gap 14 mmol/L 02/20/18 00:16 BUN 14 mg/dL (9-20) 02/20/18 00:16 Creatinine 1.4 mg/dL (0.8-1.5) 02/20/18 00:16 Estimated GFR 56 ml/min 02/20/18 00:16 BUN/Creatinine Ratio 10 % 02/20/18 00:16 Glucose 101 mg/dL (75-100) H 02/20/18 00:16 Calcium 8.3 mg/dL (8.4-10.2) L 02/20/18 00:16 Total Bilirubin 0.30 mg/dL (0.1-1.2) 02/20/18 00:16 AST 25 units/L (5-40) 02/20/18 00:16 ALT 12 units/L (7-56) 02/20/18 00:16 Alkaline Phosphatase 48 units/L (35-129) 02/20/18 00:16 Total Protein 7.1 g/dL (6.3-8.2) 02/20/18 00:16 Albumin 3.5 g/dL (3.9-5) L 02/20/18 00:16 Albumin/Globulin Ratio 1.0 % 02/20/18 00:16 Urine Color Yellow (Yellow) 02/20/18 03:06 Urine Turbidity Hazy (Clear) 02/20/18 03:06 Urine pH 6.0 (5.0-7.0) 02/20/18 03:06 Ur Specific [place] 1.013 (1.003-1.030) 02/20/18 03:06 Urine Protein <15 mg/dl mg/dL (Negative) 02/20/18 03:06 Urine Glucose (UA) Neg mg/dL (Negative) 02/20/18 03:06 Urine Ketones Neg mg/dL (Negative) 02/20/18 03:06 Urine Blood Lg (Negative) 02/20/18 03:06 Urine Nitrite Neg (Negative) 02/20/18 03:06 Urine Bilirubin Neg (Negative) 02/20/18 03:06 Urine Urobilinogen 2.0 mg/dL (<2.0) 02/20/18 03:06 Ur Leukocyte Esterase Neg (Negative) 02/20/18 03:06 Urine WBC (Auto) 4.0 /HPF (0.0-6.0) 02/20/18 03:06 Urine RBC (Auto) > 182.0 /HPF (0.0-6.0) 02/20/18 03:06 U Epithel Cells (Auto) < 1.0 /HPF (0-13.0) 02/20/18 03:06 Urine Mucus Few /HPF 02/20/18 03:06 Salicylates < 0.3 mg/dL (2.8-20.0) L 02/20/18 00:16 Urine Opiates Screen Presumptive negative 02/20/18 03:06 Urine Methadone Screen Presumptive negative 02/20/18 03:06 Acetaminophen < 5.0 ug/mL (10.0-30.0) L 02/20/18 00:16 Ur Barbiturates Screen Presumptive negative 02/20/18 03:06 Phenytoin 0.8 ug/mL (10.0-20.0) L 02/20/18 00:16 Valproic Acid < 2.8 ug/mL (50-100) L 02/20/18 00:16 Carbamazepine 2.0 ug/mL (4-12) L 02/20/18 00:16 Ur Phencyclidine Scrn Presumptive negative 02/20/18 03:06 Ur Amphetamines Screen Presumptive negative 02/20/18 03:06 U Benzodiazepines Scrn Presumptive negative 02/20/18 03:06 Urine Cocaine Screen Presumptive negative 02/20/18 03:06 U Marijuana (THC) Screen Presumptive negative 02/20/18 03:06 Drugs of Abuse Note Disclamer 02/20/18 03:06 Plasma/Serum Alcohol < 0.01 % (0-0.07) 02/20/18 00:16 HIV 1&2 Antibody Rapid Reactive (Non React) 02/20/18 05:57 HIV P24 Antigen Non react (Non React) 02/20/18 05:57
[2018-02-20] MEDS ORDERED: KEPPRA 1,000 MG/NS 0.75% 100ML 1,000 MG/100 ML BAG IV SCH (14:00)
[2018-02-20] MEDS: PERCOCET 5/325 PO PRN (17:09)
--- NOTE | 2018-02-20 19:35 | Progress Note ---
Subjective - Reason for Consult Consult date: 02/20/18 Reason for consult: r/o conversion disorder - Chief Complaint Chief complaint: In light of his medical conditions, it is recommended to speak with him regarding his HIV status before psychiatric evaluation. We will follow up tomorrow. Mental Status Exam - Vital signs Last Vital Signs Temp 97.4 F L 02/20/18 07:38 Pulse 111 H 02/20/18 15:30 Resp 17 02/20/18 15:30 BP 97/59 02/20/18 16:16 Pulse Ox 99 02/20/18 15:30
[2018-02-20] MEDS: KEPPRA 1,000 MG in D5W 100 ML IV SCH (23:26)
[2018-02-21] MEDS: SODIUM CHLORIDE FLUSH SYRINGE 10 ML IV SCH ×6 (00:18→22:19)
[2018-02-21] MEDS: PERCOCET 5/325 PO PRN (01:52)
[2018-02-21] MEDS: ATIVAN IV PRN ×2 (02:11→13:19)
[2018-02-21 06:31] LABS: Basophils % (Auto) 0.7 % (0.0-1.8); Eosinophils % (Auto) 1.4 % (0.0-4.3); Hematocrit 34.7 % (35.5-45.6); Hemoglobin 11.6 gm/dl (11.8-15.2); Lymphocytes # (Auto) 0.7 K/mm3 (1.2-5.4); Lymphocytes % (Auto) 28.6 % (13.4-35.0); Mean Corpuscular HGB Conc 34 % (32-34); Mean Corpuscular Hemoglobin 30 pg (28-32); Mean Corpuscular Volume 91 fl (84-94); Monocytes # (Auto) 0.3 K/mm3 (0.0-0.8); Platelet Count 176 K/mm3 (140-440); Red Blood Count 3.83 M/mm3 (3.65-5.03); Red Cell Distribution Width 13.6 % (13.2-15.2)
[2018-02-21 06:54] LABS: BUN/Creatinine Ratio 8; Blood Urea Nitrogen 11 mg/dL (9-20); Calcium 8.8 mg/dL (8.4-10.2); Hemolysis Index 5
[2018-02-21] MEDS: KEPPRA 1,000 MG in D5W 100 ML IV SCH ×2 (09:37→22:18)
[2018-02-21] MEDS: CALTRATE PLUS PO SCH ×2 (09:37→22:18)
--- NOTE | 2018-02-21 11:55 | Event Note ---
Date: 02/21/18 Per notes and speaking with the staff, the patient have not been informed of his HIV status. Psychiatry will complete a initial psy assessment after the patient have been informed. Will follow up with patient in 24 hours.
[2018-02-21] MEDS: D5NS 1,000 ML IV SCH ×2 (13:00→20:31)
--- NOTE | 2018-02-21 13:08 | Progress Note ---
Assessment and Plan - Patient Problems (1) Anemia Current Visit: Yes Status: Acute Plan to address problem: Secondary to HIV. Patient is well aware of his status. Is not depressed at this particular time patient would like to find local infectious disease doctor so he can start treatment if necessary. (2) Conversion disorder with attacks or seizures, acute episode Current Visit: Yes Status: Acute Plan to address problem: At present from the description appears to be an actual seizure. They did have witnessed seizure by staff and ER. Patient continues to have another seizure will increase Keppra to 1000 twice a day await any further recommendations via neurology. He is oxygenating well. Did come around appears and had another seizure currently on Ativan. Stable since increasing Keppra to 750 mg twice a day. She'll be able to change to by mouth today. Await neurology eval. EEG pending (3) Neutropenia Current Visit: Yes Status: Acute Plan to address problem: Most likely secondary to patient's HIV status. (4) Seizure disorder, complex partial Current Visit: Yes Status: Acute Qualifiers: Epilepsy type: partial symptomatic Status epilepticus: without status epilepticus Plan to address problem: see seizure as previously described. Above (5) HIV (human immunodeficiency virus infection) Current Visit: Yes Status: Acute Plan to address problem: She had a reaction positive test. Unable to detail patient about results secondary to his postictal status. History Interval history: Had long discussion with patient about HIV status. Patient is aware of his HIV status has not been taking medications. Patient has been HIV for several years now positive. Currently not depressed about the situation at present. Patient did have one seizure at 2 AM last night. This is much better on Keppra. Hospitalist Physical - Constitutional Vitals: Temp Pulse Resp BP Pulse Ox 98.0 F 71 20 132/89 98 02/21/18 11:45 02/21/18 11:45 02/21/18 11:45 02/21/18 11:45 02/21/18 11:45 General appearance: Present: no acute distress, well-nourished, other ( lethargic but arousable) - EENT Eyes: Present: PERRL, EOM intact ENT: hearing intact, clear oral mucosa, dentition normal - Neck Neck: Present: supple, normal ROM - Respiratory Respiratory: bilateral: CTA - Cardiovascular Rhythm: regular - Extremities Extremities: no ischemia, pulses intact, pulses symmetrical Peripheral Pulses: within normal limits - Abdominal General gastrointestinal: soft, non-tender, non-distended - Integumentary Integumentary: Present: clear, warm, dry - Psychiatric Psychiatric: appropriate mood/affect, cooperative - Neurologic Neurologic: CNII-XII intact, moves all extremities Results - Labs CBC & Chem 7: 02/21/18 05:49 02/21/18 05:49 Labs: Laboratory Last Values WBC 2.5 K/mm3 (4.5-11.0) L 02/21/18 05:49 RBC 3.83 M/mm3 (3.65-5.03) 02/21/18 05:49 Hgb 11.6 gm/dl (11.8-15.2) L 02/21/18 05:49 Hct 34.7 % (35.5-45.6) L 02/21/18 05:49 MCV 91 fl (84-94) 02/21/18 05:49 MCH 30 pg (28-32) 02/21/18 05:49 MCHC 34 % (32-34) 02/21/18 05:49 RDW 13.6 % (13.2-15.2) 02/21/18 05:49 Plt Count 176 K/mm3 (140-440) 02/21/18 05:49 Lymph % (Auto) 28.6 % (13.4-35.0) 02/21/18 05:49 [place] % (Auto) 13.0 % (0.0-7.3) H 02/21/18 05:49 Eos % (Auto) 1.4 % (0.0-4.3) 02/21/18 05:49 Baso % (Auto) 0.7 % (0.0-1.8) 02/21/18 05:49 Lymph # 0.7 K/mm3 (1.2-5.4) L 02/21/18 05:49 [place] # 0.3 K/mm3 (0.0-0.8) 02/21/18 05:49 Eos # 0.0 K/mm3 (0.0-0.4) 02/21/18 05:49 Baso # 0.0 K/mm3 (0.0-0.1) 02/21/18 05:49 Add Manual Diff Complete 02/20/18 00:16 Total Counted 100 02/20/18 00:16 Seg Neutrophils % 56.3 % (40.0-70.0) 02/21/18 05:49 Seg Neuts % (Manual) 66.0 % (40.0-70.0) 02/20/18 00:16 Band Neutrophils % 5.0 % 02/20/18 00:16 Lymphocytes % (Manual) 20.0 % (13.4-35.0) 02/20/18 00:16 Reactive Lymphs % (Man) 0 % 02/20/18 00:16 Monocytes % (Manual) 9.0 % (0.0-7.3) H 02/20/18 00:16 Eosinophils % (Manual) 0 % (0.0-4.3) 02/20/18 00:16 Basophils % (Manual) 0 % (0.0-1.8) 02/20/18 00:16 Metamyelocytes % 0 % 02/20/18 00:16 Myelocytes % 0 % 02/20/18 00:16 Promyelocytes % 0 % 02/20/18 00:16 Blast Cells % 0 % 02/20/18 00:16 Nucleated RBC % Not Reportable 02/20/18 00:16 Seg Neutrophils # 1.4 K/mm3 (1.8-7.7) L 02/21/18 05:49 Seg Neutrophils # Man 1.5 K/mm3 (1.8-7.7) L 02/20/18 00:16 Band Neutrophils # 0.1 K/mm3 02/20/18 00:16 Lymphocytes # (Manual) 0.5 K/mm3 (1.2-5.4) L 02/20/18 00:16 Abs React Lymphs (Man) 0.0 K/mm3 02/20/18 00:16 Monocytes # (Manual) 0.2 K/mm3 (0.0-0.8) 02/20/18 00:16 Eosinophils # (Manual) 0.0 K/mm3 (0.0-0.4) 02/20/18 00:16 Basophils # (Manual) 0.0 K/mm3 (0.0-0.1) 02/20/18 00:16 Metamyelocytes # 0.0 K/mm3 02/20/18 00:16 Myelocytes # 0.0 K/mm3 02/20/18 00:16 Promyelocytes # 0.0 K/mm3 02/20/18 00:16 Blast Cells # 0.0 K/mm3 02/20/18 00:16 WBC Morphology Not Reportable 02/20/18 00:16 Hypersegmented Neuts Not Reportable 02/20/18 00:16 Hyposegmented Neuts Not Reportable 02/20/18 00:16 Hypogranular Neuts Not Reportable 02/20/18 00:16 Smudge Cells Not Reportable 02/20/18 00:16 Toxic Granulation Not Reportable 02/20/18 00:16 Toxic Vacuolation Not Reportable 02/20/18 00:16 Dohle Bodies Not Reportable 02/20/18 00:16 Pelger-Huet Anomaly Not Reportable 02/20/18 00:16 Mal Rods Not Reportable 02/20/18 00:16 Platelet Estimate Appears normal 02/20/18 00:16 Clumped Platelets Not Reportable 02/20/18 00:16 Plt Clumps, EDTA Not Reportable 02/20/18 00:16 Large Platelets Not Reportable 02/20/18 00:16 Giant Platelets Not Reportable 02/20/18 00:16 Platelet Satelliting Not Reportable 02/20/18 00:16 Plt Morphology Comment Not Reportable 02/20/18 00:16 RBC Morphology Not Reportable 02/20/18 00:16 Dimorphic RBCs Not Reportable 02/20/18 00:16 Polychromasia Not Reportable 02/20/18 00:16 Hypochromasia 1+ 02/20/18 00:16 Poikilocytosis Not Reportable 02/20/18 00:16 Anisocytosis 1+ 02/20/18 00:16 Microcytosis Not Reportable 02/20/18 00:16 Macrocytosis Not Reportable 02/20/18 00:16 Spherocytes Not Reportable 02/20/18 00:16 Pappenheimer Bodies Not Reportable 02/20/18 00:16 Sickle Cells Not Reportable 02/20/18 00:16 Target Cells Not Reportable 02/20/18 00:16 Tear Drop Cells Not Reportable 02/20/18 00:16 Ovalocytes Not Reportable 02/20/18 00:16 Helmet Cells Not Reportable 02/20/18 00:16 Costello-[place] Bodies Not Reportable 02/20/18 00:16 [place] Rings Not Reportable 02/20/18 00:16 [place] Cells Not Reportable 02/20/18 00:16 Bite Cells Not Reportable 02/20/18 00:16 Crenated Cell Not Reportable 02/20/18 00:16 Elliptocytes Not Reportable 02/20/18 00:16 Acanthocytes (Spur) Not Reportable 02/20/18 00:16 Rouleaux Not Reportable 02/20/18 00:16 Hemoglobin C Crystals Not Reportable 02/20/18 00:16 Schistocytes Not Reportable 02/20/18 00:16 Malaria parasites Not Reportable 02/20/18 00:16 [place]o Bodies Not Reportable 02/20/18 00:16 Hem Pathologist Commnt No 02/20/18 00:16 Sodium 140 mmol/L (137-145) 02/21/18 05:49 Potassium 3.9 mmol/L (3.6-5.0) 02/21/18 05:49 Chloride 103.4 mmol/L (98-107) 02/21/18 05:49 Carbon Dioxide 28 mmol/L (22-30) 02/21/18 05:49 Anion Gap 13 mmol/L 02/21/18 05:49 BUN 11 mg/dL (9-20) 02/21/18 05:49 Creatinine 1.3 mg/dL (0.8-1.5) 02/21/18 05:49 Estimated GFR > 60 ml/min 02/21/18 05:49 BUN/Creatinine Ratio 8 % 02/21/18 05:49 Glucose 86 mg/dL (75-100) 02/21/18 05:49 Calcium 8.8 mg/dL (8.4-10.2) 02/21/18 05:49 Total Bilirubin 0.30 mg/dL (0.1-1.2) 02/20/18 00:16 AST 25 units/L (5-40) 02/20/18 00:16 ALT 12 units/L (7-56) 02/20/18 00:16 Alkaline Phosphatase 48 units/L (35-129) 02/20/18 00:16 Total Protein 7.1 g/dL (6.3-8.2) 02/20/18 00:16 Albumin 3.5 g/dL (3.9-5) L 02/20/18 00:16 Albumin/Globulin Ratio 1.0 % 02/20/18 00:16 Urine Color Yellow (Yellow) 02/20/18 03:06 Urine Turbidity Hazy (Clear) 02/20/18 03:06 Urine pH 6.0 (5.0-7.0) 02/20/18 03:06 Ur Specific [place] 1.013 (1.003-1.030) 02/20/18 03:06 Urine Protein <15 mg/dl mg/dL (Negative) 02/20/18 03:06 Urine Glucose (UA) Neg mg/dL (Negative) 02/20/18 03:06 Urine Ketones Neg mg/dL (Negative) 02/20/18 03:06 Urine Blood Lg (Negative) 02/20/18 03:06 Urine Nitrite Neg (Negative) 02/20/18 03:06 Urine Bilirubin Neg (Negative) 02/20/18 03:06 Urine Urobilinogen 2.0 mg/dL (<2.0) 02/20/18 03:06 Ur Leukocyte Esterase Neg (Negative) 02/20/18 03:06 Urine WBC (Auto) 4.0 /HPF (0.0-6.0) 02/20/18 03:06 Urine RBC (Auto) > 182.0 /HPF (0.0-6.0) 02/20/18 03:06 U Epithel Cells (Auto) < 1.0 /HPF (0-13.0) 02/20/18 03:06 Urine Mucus Few /HPF 02/20/18 03:06 Salicylates < 0.3 mg/dL (2.8-20.0) L 02/20/18 00:16 Urine Opiates Screen Presumptive negative 02/20/18 03:06 Urine Methadone Screen Presumptive negative 02/20/18 03:06 Acetaminophen < 5.0 ug/mL (10.0-30.0) L 02/20/18 00:16 Ur Barbiturates Screen Presumptive negative 02/20/18 03:06 Phenytoin 0.8 ug/mL (10.0-20.0) L 02/20/18 00:16 Valproic Acid < 2.8 ug/mL (50-100) L 02/20/18 00:16 Carbamazepine 2.0 ug/mL (4-12) L 02/20/18 00:16 Ur Phencyclidine Scrn Presumptive negative 02/20/18 03:06 Ur Amphetamines Screen Presumptive negative 02/20/18 03:06 U Benzodiazepines Scrn Presumptive negative 02/20/18 03:06 Urine Cocaine Screen Presumptive negative 02/20/18 03:06 U Marijuana (THC) Screen Presumptive negative 02/20/18 03:06 Drugs of Abuse Note Disclamer 02/20/18 03:06 Plasma/Serum Alcohol < 0.01 % (0-0.07) 02/20/18 00:16 HIV 1&2 Antibody Rapid Reactive (Non React) 02/20/18 05:57 HIV P24 Antigen Non react (Non React) 02/20/18 05:57
--- NOTE | 2018-02-22 09:48 | Progress Note ---
Assessment and Plan Assessment and plan: Seizure disorder. Neurology to see. Continue Keppra 1000mg bid HIV infection. Patient says he has been HIV positive since he was 16yrs old DVT prophylaxis.Heparin subcut Full code status History Interval history: Seizures Hospitalist Physical - Physical exam Narrative exam: Gen : Not in acute distress, lying in bed HEENT:Normocephalic, atraumatic Neck: supple, No JVD Lungs:Clear to auscultation bilaterally,no crackles, no wheeze Heart :S1 and S2 reg, no murmurs, rubs or gallop Abd:soft, non tender, non distended, normal bowel sounds Ext: No edema, no clubbing, no cyanosis Neuro: Awake,alert,oriented x 3, no focal signs - Constitutional Vitals: Temp Pulse Resp BP Pulse Ox 97.5 F L 81 20 158/108 99 02/22/18 07:42 02/22/18 07:42 02/22/18 07:42 02/22/18 07:42 02/22/18 07:42 General appearance: Present: no acute distress, well-nourished, other ( lethargic but arousable) Results - Labs CBC & Chem 7: 02/21/18 05:49 02/21/18 05:49 Labs: Laboratory Last Values WBC 2.5 K/mm3 (4.5-11.0) L 02/21/18 05:49 RBC 3.83 M/mm3 (3.65-5.03) 02/21/18 05:49 Hgb 11.6 gm/dl (11.8-15.2) L 02/21/18 05:49 Hct 34.7 % (35.5-45.6) L 02/21/18 05:49 MCV 91 fl (84-94) 02/21/18 05:49 MCH 30 pg (28-32) 02/21/18 05:49 MCHC 34 % (32-34) 02/21/18 05:49 RDW 13.6 % (13.2-15.2) 02/21/18 05:49 Plt Count 176 K/mm3 (140-440) 02/21/18 05:49 Lymph % (Auto) 28.6 % (13.4-35.0) 02/21/18 05:49 [place] % (Auto) 13.0 % (0.0-7.3) H 02/21/18 05:49 Eos % (Auto) 1.4 % (0.0-4.3) 02/21/18 05:49 Baso % (Auto) 0.7 % (0.0-1.8) 02/21/18 05:49 Lymph # 0.7 K/mm3 (1.2-5.4) L 02/21/18 05:49 [place] # 0.3 K/mm3 (0.0-0.8) 02/21/18 05:49 Eos # 0.0 K/mm3 (0.0-0.4) 02/21/18 05:49 Baso # 0.0 K/mm3 (0.0-0.1) 02/21/18 05:49 Add Manual Diff Complete 02/20/18 00:16 Total Counted 100 02/20/18 00:16 Seg Neutrophils % 56.3 % (40.0-70.0) 02/21/18 05:49 Seg Neuts % (Manual) 66.0 % (40.0-70.0) 02/20/18 00:16 Band Neutrophils % 5.0 % 02/20/18 00:16 Lymphocytes % (Manual) 20.0 % (13.4-35.0) 02/20/18 00:16 Reactive Lymphs % (Man) 0 % 02/20/18 00:16 Monocytes % (Manual) 9.0 % (0.0-7.3) H 02/20/18 00:16 Eosinophils % (Manual) 0 % (0.0-4.3) 02/20/18 00:16 Basophils % (Manual) 0 % (0.0-1.8) 02/20/18 00:16 Metamyelocytes % 0 % 02/20/18 00:16 Myelocytes % 0 % 02/20/18 00:16 Promyelocytes % 0 % 02/20/18 00:16 Blast Cells % 0 % 02/20/18 00:16 Nucleated RBC % Not Reportable 02/20/18 00:16 Seg Neutrophils # 1.4 K/mm3 (1.8-7.7) L 02/21/18 05:49 Seg Neutrophils # Man 1.5 K/mm3 (1.8-7.7) L 02/20/18 00:16 Band Neutrophils # 0.1 K/mm3 02/20/18 00:16 Lymphocytes # (Manual) 0.5 K/mm3 (1.2-5.4) L 02/20/18 00:16 Abs React Lymphs (Man) 0.0 K/mm3 02/20/18 00:16 Monocytes # (Manual) 0.2 K/mm3 (0.0-0.8) 02/20/18 00:16 Eosinophils # (Manual) 0.0 K/mm3 (0.0-0.4) 02/20/18 00:16 Basophils # (Manual) 0.0 K/mm3 (0.0-0.1) 02/20/18 00:16 Metamyelocytes # 0.0 K/mm3 02/20/18 00:16 Myelocytes # 0.0 K/mm3 02/20/18 00:16 Promyelocytes # 0.0 K/mm3 02/20/18 00:16 Blast Cells # 0.0 K/mm3 02/20/18 00:16 WBC Morphology Not Reportable 02/20/18 00:16 Hypersegmented Neuts Not Reportable 02/20/18 00:16 Hyposegmented Neuts Not Reportable 02/20/18 00:16 Hypogranular Neuts Not Reportable 02/20/18 00:16 Smudge Cells Not Reportable 02/20/18 00:16 Toxic Granulation Not Reportable 02/20/18 00:16 Toxic Vacuolation Not Reportable 02/20/18 00:16 Dohle Bodies Not Reportable 02/20/18 00:16 Pelger-Huet Anomaly Not Reportable 02/20/18 00:16 Mal Rods Not Reportable 02/20/18 00:16 Platelet Estimate Appears normal 02/20/18 00:16 Clumped Platelets Not Reportable 02/20/18 00:16 Plt Clumps, EDTA Not Reportable 02/20/18 00:16 Large Platelets Not Reportable 02/20/18 00:16 Giant Platelets Not Reportable 02/20/18 00:16 Platelet Satelliting Not Reportable 02/20/18 00:16 Plt Morphology Comment Not Reportable 02/20/18 00:16 RBC Morphology Not Reportable 02/20/18 00:16 Dimorphic RBCs Not Reportable 02/20/18 00:16 Polychromasia Not Reportable 02/20/18 00:16 Hypochromasia 1+ 02/20/18 00:16 Poikilocytosis Not Reportable 02/20/18 00:16 Anisocytosis 1+ 02/20/18 00:16 Microcytosis Not Reportable 02/20/18 00:16 Macrocytosis Not Reportable 02/20/18 00:16 Spherocytes Not Reportable 02/20/18 00:16 Pappenheimer Bodies Not Reportable 02/20/18 00:16 Sickle Cells Not Reportable 02/20/18 00:16 Target Cells Not Reportable 02/20/18 00:16 Tear Drop Cells Not Reportable 02/20/18 00:16 Ovalocytes Not Reportable 02/20/18 00:16 Helmet Cells Not Reportable 02/20/18 00:16 Costello-[place] Bodies Not Reportable 02/20/18 00:16 [place] Rings Not Reportable 02/20/18 00:16 [place] Cells Not Reportable 02/20/18 00:16 Bite Cells Not Reportable 02/20/18 00:16 Crenated Cell Not Reportable 02/20/18 00:16 Elliptocytes Not Reportable 02/20/18 00:16 Acanthocytes (Spur) Not Reportable 02/20/18 00:16 Rouleaux Not Reportable 02/20/18 00:16 Hemoglobin C Crystals Not Reportable 02/20/18 00:16 Schistocytes Not Reportable 02/20/18 00:16 Malaria parasites Not Reportable 02/20/18 00:16 Romeo Bodies Not Reportable 02/20/18 00:16 Hem Pathologist Commnt No 02/20/18 00:16 Sodium 140 mmol/L (137-145) 02/21/18 05:49 Potassium 3.9 mmol/L (3.6-5.0) 02/21/18 05:49 Chloride 103.4 mmol/L (98-107) 02/21/18 05:49 Carbon Dioxide 28 mmol/L (22-30) 02/21/18 05:49 Anion Gap 13 mmol/L 02/21/18 05:49 BUN 11 mg/dL (9-20) 02/21/18 05:49 Creatinine 1.3 mg/dL (0.8-1.5) 02/21/18 05:49 Estimated GFR > 60 ml/min 02/21/18 05:49 BUN/Creatinine Ratio 8 % 02/21/18 05:49 Glucose 86 mg/dL (75-100) 02/21/18 05:49 POC Glucose 122 (70-105) H 02/21/18 21:55 Calcium 8.8 mg/dL (8.4-10.2) 02/21/18 05:49 Total Bilirubin 0.30 mg/dL (0.1-1.2) 02/20/18 00:16 AST 25 units/L (5-40) 02/20/18 00:16 ALT 12 units/L (7-56) 02/20/18 00:16 Alkaline Phosphatase 48 units/L (35-129) 02/20/18 00:16 Total Protein 7.1 g/dL (6.3-8.2) 02/20/18 00:16 Albumin 3.5 g/dL (3.9-5) L 02/20/18 00:16 Albumin/Globulin Ratio 1.0 % 02/20/18 00:16 Urine Color Yellow (Yellow) 02/20/18 03:06 Urine Turbidity Hazy (Clear) 02/20/18 03:06 Urine pH 6.0 (5.0-7.0) 02/20/18 03:06 Ur Specific [place] 1.013 (1.003-1.030) 02/20/18 03:06 Urine Protein <15 mg/dl mg/dL (Negative) 02/20/18 03:06 Urine Glucose (UA) Neg mg/dL (Negative) 02/20/18 03:06 Urine Ketones Neg mg/dL (Negative) 02/20/18 03:06 Urine Blood Lg (Negative) 02/20/18 03:06 Urine Nitrite Neg (Negative) 02/20/18 03:06 Urine Bilirubin Neg (Negative) 02/20/18 03:06 Urine Urobilinogen 2.0 mg/dL (<2.0) 02/20/18 03:06 Ur Leukocyte Esterase Neg (Negative) 02/20/18 03:06 Urine WBC (Auto) 4.0 /HPF (0.0-6.0) 02/20/18 03:06 Urine RBC (Auto) > 182.0 /HPF (0.0-6.0) 02/20/18 03:06 U Epithel Cells (Auto) < 1.0 /HPF (0-13.0) 02/20/18 03:06 Urine Mucus Few /HPF 02/20/18 03:06 Salicylates < 0.3 mg/dL (2.8-20.0) L 02/20/18 00:16 Urine Opiates Screen Presumptive negative 02/20/18 03:06 Urine Methadone Screen Presumptive negative 02/20/18 03:06 Acetaminophen < 5.0 ug/mL (10.0-30.0) L 02/20/18 00:16 Ur Barbiturates Screen Presumptive negative 02/20/18 03:06 Phenytoin 0.8 ug/mL (10.0-20.0) L 02/20/18 00:16 Valproic Acid < 2.8 ug/mL (50-100) L 02/20/18 00:16 Carbamazepine 2.0 ug/mL (4-12) L 02/20/18 00:16 Ur Phencyclidine Scrn Presumptive negative 02/20/18 03:06 Ur Amphetamines Screen Presumptive negative 02/20/18 03:06 U Benzodiazepines Scrn Presumptive negative 02/20/18 03:06 Urine Cocaine Screen Presumptive negative 02/20/18 03:06 U Marijuana (THC) Screen Presumptive negative 02/20/18 03:06 Drugs of Abuse Note Disclamer 02/20/18 03:06 Plasma/Serum Alcohol < 0.01 % (0-0.07) 02/20/18 00:16 HIV 1&2 Antibody Rapid Reactive (Non React) 02/20/18 05:57 HIV P24 Antigen Non react (Non React) 02/20/18 05:57
[2018-02-22] MEDS: CALTRATE PLUS PO SCH ×2 (09:59→22:31)
[2018-02-22] MEDS: KEPPRA 1,000 MG in D5W 100 ML IV SCH (09:59)
[2018-02-22] MEDS: D5NS 1,000 ML IV SCH ×2 (09:59→22:34)
--- NOTE | 2018-02-22 11:59 | Consultation ---
History of Present Illness Consult date: 02/22/18 Requesting physician: BELLO AGUIRRE Reason for Consult: Seizure. Chief complaint: Seizure. History of present illness: 42 years old left handed male with a long past medical history of seizure, admitted for seizure break through. He also has HIV. He related that he had first seizure at 9 years old. He smelled bad odd as aura, then jerking and shaking, eye near fully closed, all extremities shaking, lasted minutes. No clearly postictal, no bitten tongue, no incontinency. He has a neurologist in [place], last time he saw his neurologist was 3 months ago. He denied EMU study before. He only used Lyrica and Ativan for his seizure. He can't remember what other seizure medicine he used before. Past History Past Medical History: seizures Past Surgical History: No surgical history Social history: no significant social history, full code (homosexuality) Family history: hypertension Medications and Allergies Allergies Allergy/AdvReac Type Severity Reaction Status Date / Time No Known Allergies Allergy Unverified 01/17/17 13:34 Home Medications Medication Instructions Recorded Confirmed Last Taken Type No Known Home Medications [No 02/21/18 02/21/18 Unknown History Reported Home Medications] Active Meds: Active Medications Acetaminophen (Tylenol) 650 mg PO Q4H PRN PRN Reason: Pain MILD(1-3)/Fever >100.5/RANDHAWA Dextrose/Sodium Chloride (D5ns) 1,000 mls @ 75 mls/hr IV DIRECT SAVITA Last Admin: 02/22/18 09:59 Dose: 75 mls/hr Levetiracetam 1,000 mg/ (Dextrose) 110 mls @ 440 mls/hr IV Q12H SAVITA Stop: 02/22/18 12:59 Last Admin: 02/22/18 09:59 Dose: 440 mls/hr Ibuprofen (Motrin) 600 mg PO Q6H PRN PRN Reason: Pain, Mild (1-3) Levetiracetam (Keppra) 1,000 mg PO BID SAVITA Lorazepam (Ativan) 2 mg IV Q5M PRN PRN Reason: Seizures Last Admin: 02/21/18 13:19 Dose: 2 mg Morphine Sulfate (Morphine) 2 mg IV Q4H PRN PRN Reason: Pain, Moderate (4-6) Last Admin: 02/21/18 22:24 Dose: 2 mg Multivitamins/Minerals (Caltrate Plus) 1 each PO BID [facility] Last Admin: 02/22/18 09:59 Dose: 1 each Ondansetron HCl (Zofran) 4 mg IV Q8H PRN PRN Reason: Nausea And Vomiting Oxycodone/Acetaminophen (Percocet 5/325) 1 tab PO Q6H PRN PRN Reason: Pain, Moderate (4-6) Last Admin: 02/21/18 01:52 Dose: 1 tab Sodium Chloride (Sodium Chloride Flush Syringe 10 Ml) 10 ml IV BID [facility] Last Admin: 02/21/18 22:19 Dose: Not Given Sodium Chloride (Sodium Chloride Flush Syringe 10 Ml) 10 ml IV PRN PRN PRN Reason: LINE FLUSH Review of Systems All systems: negative (general weakness. All other 10 poits of systems are reviewed and negative.) Physical Examination - Vital Signs Vital Signs: Vital Signs Pulse Ox 100 02/19/18 23:22 - Constitutional General appearance: comfortable - EENT EENT: Present: ATNC, PERRL - Respiratory Respiratory: Present: lungs clear, normal breath sounds - Cardiovascular Cardiovascular: Present: regular rate, no murmurs - Gastrointestinal Gastrointestinal: Present: soft, non-tender - Integumentary Integumentary: Present: normal - Neurologic Cranial nerve examination: PERRL, EOMI, V1/V2/V3 grossly intact, intact Speech examination: intact Detailed motor examination: grossly full strength in Detailed sensory examination: intact Reflexes: 2+: ankle, bicep, knee, tricep - Psychiatric Psychiatric: Present: mood/affect appropriate Results - Laboratory Findings CBC and BMP: 02/21/18 05:49 02/21/18 05:49 Abnormal Lab Findings: Abnormal Labs 02/20/18 02/20/18 02/20/18 00:16 00:16 00:16 WBC 2.3 L RBC 3.31 L Hgb 9.9 L Hct 29.5 L [place] % (Auto) Lymph # Monocytes % (Manual) 9.0 H Seg Neutrophils # Seg Neutrophils # Man 1.5 L Lymphocytes # (Manual) 0.5 L Glucose 101 H POC Glucose Calcium 8.3 L Albumin 3.5 L Salicylates < 0.3 L Acetaminophen Phenytoin 0.8 L Valproic Acid < 2.8 L Carbamazepine 2.0 L 02/20/18 02/21/18 02/21/18 00:16 05:49 21:55 WBC 2.5 L RBC Hgb 11.6 L Hct 34.7 L [place] % (Auto) 13.0 H Lymph # 0.7 L Monocytes % (Manual) Seg Neutrophils # 1.4 L Seg Neutrophils # Man Lymphocytes # (Manual) Glucose POC Glucose 122 H Calcium Albumin Salicylates Acetaminophen < 5.0 L Phenytoin Valproic Acid Carbamazepine Assessment and Plan 1. H/O seizure and seizure break though. If he has seizure, probably focal with conscious impairment and secondary. 2. Psychological none epileptic seizure as differential. Suggest psychiatry consult. 3. HIV. ID. 4. Always seizure precaution. Don't drive a vehicle or operate heavy machinery for 6 months. 5. Suggest following with his neurologist and possible needs EMU study. 6. Plan discussed with him. 7. He was put on Keppra on admission. Continue Keppra and Lyrica. 8. Will follow up with you.
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
[2018-02-22] MEDS: SODIUM CHLORIDE FLUSH SYRINGE 10 ML IV SCH ×2 (14:27→22:32)
[2018-02-22] MEDS: ATIVAN IV PRN (19:15)
[2018-02-22] MEDS: KEPPRA PO SCH (22:30)
[2018-02-23 09:06] VITALS: BP 131/72
--- NOTE | 2018-02-23 10:50 | Progress Note ---
Assessment and Plan 1. H/O seizure and seizure break though. If he has seizure, probably focal with conscious impairment and secondary. Pending EEG. 2. Psychological none epileptic seizure as differential. Suggest psychiatry consult. 3. HIV. ID. 4. Always seizure precaution. Don't drive a vehicle or operate heavy machinery for 6 months. 5. Suggest following with his neurologist and possible needs EMU study. 6. Plan discussed with him. 7. He was put on Keppra on admission. Continue Keppra and his home Lyrica . 8. Will follow up with you PRN. 9. If D/C, F/U with neurology in 4-6 weeks. Subjective Date of service: 02/23/18 Principal diagnosis: Seizure. Interval history: No seizures. Objective - Vital Sign Vital Signs - 12hr 02/22/18 02/23/18 02/23/18 23:20 04:33 04:42 Temperature 98.1 F 98.0 F 98.4 F Pulse Rate 65 79 129 H Respiratory 18 20 26 H Rate Blood Pressure 159/101 105/52 142/93 O2 Sat by Pulse 100 98 97 Oximetry 02/23/18 02/23/18 02/23/18 04:50 05:07 06:31 Temperature 100.0 F H 97.9 F Pulse Rate 94 H 71 71 Respiratory 28 H 16 Rate Blood Pressure 153/103 143/90 O2 Sat by Pulse 100 99 Oximetry 02/23/18 07:24 Temperature 98.2 F Pulse Rate 60 Respiratory 20 Rate Blood Pressure 131/72 O2 Sat by Pulse 97 Oximetry - General Apperance Constitutional: comfortable - EENT EENT: PERRL, vision intact - Respiratory Respiratory: lungs clear, normal breath sounds - Cardiovascular Cardiovascular: regular rate, no murmurs Extremities: no peripheral edema bilat, no clubbing, cyanosis - Gastrointestinal Gastrointestinal: soft, non-tender - Integumentary Integumentary: normal - Neurologic Cranial nerve examination: PERRL, EOMI, intact Speech examination: intact Detailed motor examination: grossly full strength in Detailed sensory examination: intact Reflexes: 2+: ankle, bicep, knee, tricep - Psychiatric Psychiatric: mood/affect appropriate - Laboratory Findings CBC and BMP: 02/21/18 05:49 02/21/18 05:49 Abnormal Lab Findings: Abnormal Labs 02/20/18 02/20/18 02/20/18 00:16 00:16 00:16 WBC 2.3 L RBC 3.31 L Hgb 9.9 L Hct 29.5 L [place] % (Auto) Lymph # Monocytes % (Manual) 9.0 H Seg Neutrophils # Seg Neutrophils # Man 1.5 L Lymphocytes # (Manual) 0.5 L Glucose 101 H POC Glucose Calcium 8.3 L Albumin 3.5 L Salicylates < 0.3 L Acetaminophen Phenytoin 0.8 L Valproic Acid < 2.8 L Carbamazepine 2.0 L 02/20/18 02/21/18 02/21/18 00:16 05:49 21:55 WBC 2.5 L RBC Hgb 11.6 L Hct 34.7 L [place] % (Auto) 13.0 H Lymph # 0.7 L Monocytes % (Manual) Seg Neutrophils # 1.4 L Seg Neutrophils # Man Lymphocytes # (Manual) Glucose POC Glucose 122 H Calcium Albumin Salicylates Acetaminophen < 5.0 L Phenytoin Valproic Acid Carbamazepine
[2018-02-23] MEDS: KEPPRA PO SCH (11:01)
[2018-02-23] MEDS: CALTRATE PLUS PO SCH (11:02)
--- NOTE | 2018-02-23 12:59 | Discharge Summary ---
Providers - Providers Date of Admission: 02/21/18 12:19 Date of discharge: 02/23/18 Attending physician: BELLO AGUIRRE 02/20/18 05:46 Consult to Mental Health [CONS] Routine Reason For Exam: conversion disorder Place consult to:: sofy strauss Notified:: carlos a Phone number called:: [phone] Was contact made?: Yes If yes, spoke with:: jonathan Time called:: 08:29 02/22/18 09:58 Consult to Physician [CONS] Routine Comment: Consulting Provider: NENA CARUSO Physician Instructions: Reason For Exam: seizures 02/22/18 14:27 Physical Therapy Evaluation and Treat [CONS] Routine Comment: Reason For Exam: generalized weakness Primary care physician: LAYOUT INSPECTOR Hospitalization Condition: Fair Disposition: DC-01 TO HOME OR SELFCARE Core Measure Documentation - Palliative Care Palliative Care/ Comfort Measures: Not Applicable - Core Measures Any of the following diagnoses?: none Exam - Constitutional Vitals: Temp Pulse Resp BP Pulse Ox 98.2 F 60 20 131/72 97 02/23/18 07:24 02/23/18 07:24 02/23/18 07:24 02/23/18 07:24 02/23/18 07:24 Plan Activity: no driving until cleared by PCP Diet: regular Additional Instructions: 1.Follow with PCP or [facility] in 1 week. 2.Follow up with Neurologist in 1 week. 3.No driving until cleared by PCP or Neurologist Follow up with: PRIMARY MD LUPE [Primary Care Provider] - 3-5 Days
--- NOTE | 2018-02-23 13:14 | XRay Report ---
CHEST TWO VIEWS: 02/23/18 CLINICAL: Fever. COMPARISON: none FINDINGS: Normal heart and pulmonary vasculature. The lungs are normally expanded and clear. The bones and soft tissues are normal. IMPRESSION: Normal chest.
[2018-02-25 08:30] LABS: HIV-1 Antibody Differentiation SEE SCANNED RESULTS; HIV-2 Antibody Differentiation SEE SCANNED RESULTS
== END 2018-02-23 16:00 | disposition home or self-care (01) | DRG 100 ==
LOC: ED 23:45 → 3A 02-20 04:55 → OBSVTOIN 02-21 12:19
PROVIDERS: ADMIT Internal Medicine; ATTEND Internal Medicine
DX: G40.209 Localization-related (focal) (partial) symptomatic epilepsy and epileptic syndromes with complex partial seizures, not intractable, without status epilepticus (principal); B20 Human immunodeficiency virus [HIV] disease; D70.9 Neutropenia, unspecified; E83.51 Hypocalcemia; D64.9 Anemia, unspecified; Z82.49 Family history of ischemic heart disease and other diseases of the circulatory system
CPT/HCPCS: 36415; 70450; 71046; 80048; 80053; 80156; 80164; 80185; 80307; 80320; 81001; 82962; 85007; 85025; 86689; 87806; 96361; 96365; G0378; G0480; J1953; J2060; J2270; J7030; J7042

== ENCOUNTER 2022-01-18 20:19 | Emergency (ER) | payer SELFPAY ==
[2022-01-18] MEDS ORDERED: LORazepam 2 MG/ML VIAL ONE (20:25)
[2022-01-18] MEDS ORDERED: SODIUM CHLORIDE 0.9% 1000 ML 1,000 ML IV ONE (20:26)
[2022-01-18] MEDS ORDERED: levETIRAcetam 1000 MG/NS 0.75% 1,000 MG/100 ML BAG IV ONE (20:26)
[2022-01-18] MEDS ORDERED: LORazepam 2 MG/ML VIAL IV ONE (20:26)
[2022-01-18 21:10] LABS: Bacteria,Urine 1+ /HPF (Negative); Bilirubin,Urine NEG (Negative); Blood,Urine SM (Negative); Color,Urine Yellow (Yellow); Mucus,Urine FEW /HPF; Urobilinogen,Urine < 2.0 mg/dL (<2.0)
[2022-01-18 21:14] LABS: WBC,Urine > 182.0 /HPF (0.0-6.0)
[2022-01-18 21:15] LABS: Amphetamine Screen,Urine Negative; Cannabinoid Screen,Urine Negative; Cocaine Screen,Urine Negative; Methadone Screen,Urine Negative; Opiate Screen,Urine Negative
[2022-01-18 21:28] LABS: Benzodiazepines Screen,Urine Positive
[2022-01-18 21:53] LABS: Basophils % (Auto) 0.5 % (0.0-1.8); Eosinophils % (Auto) 0.8 % (0.0-4.3); Hematocrit 34.4 % (35.5-45.6); Hemoglobin 11.4 gm/dl (11.8-15.2); Lymphocytes # (Auto) 1.3 K/mm3 (1.2-5.4); Lymphocytes % (Auto) 30.6 % (13.4-35.0); Mean Corpuscular HGB Conc 33 % (32-34); Mean Corpuscular Volume 90 fl (84-94); Monocytes # (Auto) 0.4 K/mm3 (0.0-0.8); Monocytes % (Auto) 10.4 % (0.0-7.3); Platelet Count 216 K/mm3 (140-440); Red Blood Count 3.81 M/mm3 (3.65-5.03); Red Cell Distribution Width 13.9 % (13.2-15.2)
[2022-01-18 22:03] VITALS: BP 133/90
[2022-01-18 22:17] LABS: Albumin 3.9 g/dL (3.9-5); Calcium 9.3 mg/dL (8.4-10.2)
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
--- NOTE | 2022-01-21 10:07 | Electrocardiograph Report ---
[facility] Test Date: 2022-01-18 Test Time: 20:42:18 Pat Name: JENNIFER MONACO Department: Room: Gender: M Drapery Supervisor: DANIEL : 1975 Requested By: DARIELA HAYS Order Number: [id number] Reading MD: Gemma Silveira Measurements Intervals [place] Rate: 97 P: 56 MO: 185 QRS: 23 QRSD: 91 T: 62 QT: 339 QTc: 431 Interpretive Statements Sinus rhythm Consider left ventricular hypertrophy ST elev, probable normal early repol pattern No previous ECG available for comparison Electronically Signed On 01-21-2022 10:06:58 EDT by Gemma Silveira
== END 2022-01-19 01:23 | disposition home or self-care (01) ==
LOC: ED 20:19
DX: R56.9 Unspecified convulsions (principal); Z21 Asymptomatic human immunodeficiency virus [HIV] infection status; Z79.899 Other long term (current) drug therapy
CPT/HCPCS: 36415; 80053; 80185; 80307; 81001; 85025; 93005; 96361; 96374; 96375; 99284; J1953; J2060; J7030; 80320; G0480